=== PATIENT | male | born 1975 | race Caucasian/White ===

== ENCOUNTER 2020-05-20 23:01 | Emergency (ER) | payer OTHER ==
[~2020-05-20] VITALS: Ht 177.8 cm; Wt 63.5 kg
[2020-05-21 00:19] VITALS: BP 116/83
== END 2020-05-21 00:19 | disposition home or self-care (01) ==
LOC: M.ERS 23:01
DX: M25.561 Pain in right knee (principal); F15.90 Other stimulant use, unspecified, uncomplicated

== ENCOUNTER 2021-04-21 07:01 | Emergency (ER) | payer OTHER ==
[~2021-04-21] VITALS: Ht 177.8 cm; Wt 61.2 kg
[2021-04-21 10:23] VITALS: BP 125/87
== END 2021-04-21 10:24 | disposition left against medical advice (07) ==
LOC: M.ERS 07:01
DX: Z53.21 Procedure and treatment not carried out due to patient leaving prior to being seen by health care provider (principal)